=== PATIENT | female | born 1950 | race Caucasian/White ===

== ENCOUNTER 2020-06-07 06:40 | Outpatient (CLI) | payer MEDICARE ==
[2020-06-07 14:27] LABS: Bilirubin Neg (Negative); Blood, Urine 10 (Negative); Clarity Clear (Clear); Glucose, Urine (Dipstick) Normal (Negative); Ketone, Urine Negative (Negative); Leukocyte Negative (Negative); Nitrite Negative (Negative); Protein, Urine (Dipstick) Negative (Neg-Trace); Specific Gravity, Urine 1.015 (1.002-1.036); Urobilinogen Normal mg/dL (Less than 2)
[2020-06-07 14:30] LABS: Anion Gap 16 mmol/L (10-20); BUN (Urea Nitrogen) 11 mg/dL (9.8-20.1); Calc. Creatinine Clearance 0 mL/min (70-130); Calcium 9.8 mg/dL (7.8-10.44); Carbon Dioxide 25 mmol/L (23-31); Chloride 107 mmol/L (98-107); Glucose 119 mg/dL (80-115); Potassium 4.2 mmol/L (3.5-5.1); Sodium 144 mmol/L (136-145)
[2020-06-07 14:36] LABS: #Basophils 0.1 10x3/uL (0.0-0.2); #Eosinphils 0.2 10x3/uL (0.0-0.5); #Monocytes 0.5 10x3/uL (0.0-1.1); #Neutrophils 4.3 10x3/uL (1.5-8.4); %Basophils 1.1 % (0.0-2.0); %Eosinophils 2.8 % (0.0-6.0); %Lymphocytes 27.6 % (18.0-47.0); %Monocytes 7.4 % (0.0-10.0); %Neutrophils 60.8 % (40.0-75.0); Hemoglobin 14.9 g/dL (12.0-16.0); Mean Corpuscular HGB CONC 33.2 G/DL (32.0-36.0); Mean Corpuscular Hemoglobin 29.5 PG (27.0-33.0); Mean Corpuscular Volume 88.9 fl (80.0-100.0); Mean Platelet Volume 9.8 fl (7.4-10.4); Platelet Count 404 10x3/uL (130-400); RBC Distribution Width 13.1 % (11.5-14.5); Red Blood Cell (RBC) Count 5.05 10x6/uL (3.90-5.20)
[2020-06-07 14:43] LABS: Prothrombin Time 10.2 sec (9.5-12.1)
[2020-06-07 14:52] LABS: Bacteria/HPF None Seen HPF (None Seen); RBC/HPF 0-3 HPF (0-3); Squamous Epithelial 0-3 HPF (0-3); WBC/HPF None Seen HPF (0-3)
[2020-06-07 23:54] LABS: SARS-CoV-2 MS2 Positive; SARS-CoV-2 N Gene Negative; SARS-CoV-2 S Gene Negative; SARS-CoV-2 by NAA Not Detected (NotDetected); SARS-CoV-2 orf1ab Negative
== END 2020-06-07 06:41 | disposition home or self-care (01) ==
LOC: LABBT 06:40
PROVIDERS: ATTEND Orthopaedic Surgery
DX: Z01.818 Encounter for other preprocedural examination (principal); Z20.828 Contact with and (suspected) exposure to other viral communicable diseases; M17.11 Unilateral primary osteoarthritis, right knee
CPT/HCPCS: 80048; 81001; 85025; 85610; 87081; U0003; 87635; 93005; 93010

== ENCOUNTER 2020-06-12 09:22 | Observation (INO) | payer MEDICARE ==
[2020-06-09 09:54] VITALS: BMI 26.9
[2020-06-12] MEDS ORDERED: Vancomycin 1 GM/200 ML BAG ONE (09:29)
[2020-06-12] MEDS ORDERED: Sodium Chloride 0.9% 100 ML ONE (09:29)
[2020-06-12] MEDS ORDERED: Tranexamic Acid 1,000 MG/10 ML VIAL ONE ×2 (09:29→13:20)
[2020-06-12] MEDS ORDERED: Fentanyl 100 MCG/2 ML VIAL ONE ×5 (09:41→14:28)
[2020-06-12] MEDS ORDERED: Midazolam HCl 2 mg/2 ml Vial ONE (10:05)
[2020-06-12] MEDS ORDERED: Dexamethasone 20 MG/5 ML VIAL ONE (10:09)
[2020-06-12] MEDS ORDERED: Lidocaine 1% PF 5 ML VIAL ONE (10:09)
[2020-06-12] MEDS ORDERED: Ondansetron PF 4 MG/2 ML Vial ONE (10:09)
[2020-06-12] MEDS ORDERED: PROPOFOL 200 MG/20 ML VIAL ONE (10:09)
[2020-06-12] MEDS ORDERED: Ropivacaine 0.2% HCl/PF (40 MG/20 ML VIAL) ONE (10:10)
[2020-06-12] MEDS ORDERED: Bupivacaine HCl 0.5%/Epinephrine 1:200,000/PF 30 ml Vial ONE (10:10)
[2020-06-12] MEDS ORDERED: Bupivacaine PF 0.5% 30 ML VIAL ONE (10:50)
[2020-06-12] MEDS ORDERED: Bupivacaine 0.25% HCL 30 ML VIAL ONE (10:50)
[2020-06-12] MEDS ORDERED: HYDROcodone/Acetaminophen 10/325 mg Tablet PO PRN ×3 (10:53→11:30)
[2020-06-12] MEDS ORDERED: Fentanyl 100 MCG/2 ML VIAL SLOW IVP PRN (10:53)
[2020-06-12] MEDS ORDERED: diphenhydrAMINE 25 MG CAP PO PRN (10:53)
[2020-06-12] MEDS ORDERED: traMADol HCl 50 MG TAB PO PRN ×3 (10:53→11:30)
[2020-06-12] MEDS ORDERED: Zolpidem Tartrate 5 MG TAB PO PRN ×2 (10:53→11:30)
[2020-06-12] MEDS ORDERED: Acetaminophen 325 MG TAB PO PRN (10:53)
[2020-06-12] MEDS ORDERED: Promethazine HCl 25 MG/ML VIAL IM PRN ×3 (10:53→13:10)
[2020-06-12] MEDS ORDERED: Tranexamic Acid 1,000 MG in Sodium Chloride 0.9% 100 ML IVPB SCH (11:00)
[2020-06-12] MEDS ORDERED: Fentanyl 100 MCG/2 ML VIAL IV PRN (11:20)
[2020-06-12] MEDS ORDERED: Ondansetron PF 4 MG/2 ML Vial IVP PRN (11:30)
[2020-06-12] MEDS ORDERED: Ropivacaine HCl/PF 250 ML in Premix Bag 1 BAG NERVE BLCK SCH (11:30)
[2020-06-12] MEDS ORDERED: Ketorolac Tromethamine 30 MG/ML VIAL IVP SCH ×2 (12:00→14:00)
[2020-06-12] MEDS ORDERED: Azelastine 137 MCG/Spray 30 ML NS SCH (12:45)
[2020-06-12] MEDS ORDERED: Ondansetron HCl/PF 4 MG/2 ML Vial IVP PRN (13:10)
[2020-06-12] MEDS ORDERED: Morphine Sulfate 2 MG/ML SYRINGE SLOW IVP PRN (13:10)
[2020-06-12] MEDS ORDERED: PACU-Morphine 4MG/ML VIAL SLOW IVP PRN (13:10)
[2020-06-12] MEDS ORDERED: Promethazine HCl 25 MG/ML VIAL SLOW IVP PRN (13:10)
[2020-06-12] MEDS ORDERED: Morphine 4 MG/ML VIAL ONE (13:31)
[2020-06-12] MEDS ORDERED: Promethazine HCl 25 MG/ML VIAL ONE (14:24)
[2020-06-12] MEDS: Sodium Chloride 0.9% 1,000 ML IV SCH (18:58)
[2020-06-12] MEDS: Ketorolac Tromethamine 30 MG/ML VIAL IVP SCH (18:59)
[2020-06-12] MEDS: CEFAZOLIN 2 GM in Premix Bag 1 BAG IVPB SCH (19:00)
[2020-06-12] MEDS: Ferrous Gluconate 324 MG TAB PO SCH (20:10)
[2020-06-12] MEDS: Atorvastatin Calcium 40 MG TAB PO SCH (20:10)
[2020-06-12] MEDS: HYDROcodone/Acetaminophen 10/325 mg Tablet PO PRN (20:11)
[2020-06-12] MEDS: Senokot S 8.6-50 MG TAB PO SCH (20:12)
[2020-06-12] MEDS: Loratadine 10 MG TAB PO SCH (20:12)
[2020-06-12] MEDS: Aspirin 81 mg Enteric Coated Tablet PO SCH (20:14)
[2020-06-12] MEDS: ALPRAZolam 0.25 MG TAB PO PRN (20:17)
[2020-06-12] MEDS ORDERED: Vancomycin 1 GM in Premix Bag 1 BAG IVPB SCH (22:00)
--- NOTE | 2020-06-12 22:28 | OP ---
DATE OF PROCEDURE: 06/12/2020 [employer] OPERATOR: Berlin Gentile PA-C. The pharmacy technician assistant surgeon was present throughout the procedure to include the approach, placement of all total knee replacement implants as well as full closure of the right knee wound. PREOPERATIVE DIAGNOSIS: Right knee osteoarthrosis. POSTOPERATIVE DIAGNOSIS: Right knee osteoarthrosis. PROCEDURES PERFORMED: Right total knee replacement using [employer] pinless navigation system. ANESTHESIA: General anesthetic. BLOOD LOSS: Minimal. COMPLICATIONS: None. TOURNIQUET TIME: DISPOSITION: She did go to recovery room in stable condition. IMPLANTS: To the right knee include [place] total knee system. The femur is a size 5 right cruciate-retaining femur. We used a size 4 primary tibial base plate. We used a 4 x 9 mm CS X3 tibial bearing and a 27 x 8 X3 symmetric patella. COMPLICATIONS: None. INDICATIONS: This is a 70-year-old female, who has had severe right knee pain for years and at this time, she presents for her right knee to be replaced. PROCEDURE IN DETAIL: After all appropriate consent forms were explained and signed, the patient was taken back to the operating room and at this time was given general anesthetic. Once the level of anesthesia was appropriate, a well-padded tourniquet was placed on the right leg, and the leg was then prepped and draped in standard surgical fashion. The limb was exsanguinated and tourniquet taken up to 300 mmHg. Midline incision was made with a 10 blade down through the skin and subcutaneous tissue. Bovie electrocautery was used to coagulate any brisk venous bleeding. A new blade was used to make a medial parapatellar arthrotomy. Small subperiosteal release was performed medially and excess fat pad was removed. The knee was flexed up to gain access to the femur. The femur was navigated and distal femoral resection was made. Epicondylar access was used to align our sizing jig and this was pinned in place. We sized our femur to be a 5 cruciate-retaining femur. 4:1 cutting block was applied and pinned. Anterior and posterior chamfer cuts were then made. We navigated out our proximal tibia and made our proximal tibial resection. Spreaders were used to remove any posterior osteophytes off the back of the femur as well as remaining meniscal tissue. A long alignment tracy was then used to achieve correct rotation of our tibial baseplate and a size 4 was chosen. This was pinned in place. We trialed the polyethylene and a 4 x 9 mm CS X3 polyethylene gave us full extension and good stability throughout range of motion. Two towel clips and a saw were used to cut our patella. Three lug nuts were drilled and 27 x 8 X3 symmetric patella was trialed which sat nicely in the trochlear groove. We then drilled our femur and punched our tibia. All components were removed. The knee was thoroughly irrigated and dried. Cement was mixed into the cement gun on the back table. Components were then placed. The knee was held out in full extension until the cement had dried. All excess bone cement was removed. Multiple #2 Vicryl stitches as well as a Quill were used to close our extensor mechanism. 0 Quill followed by a running Monoderm was then used to close the skin. Surgicel glue was then used on the skin. Once this had dried, soft tissue dressing was applied to the limb, tourniquet was let down, and the toes pinked up nicely. The patient was then awakened and taken to the recovery room in stable condition. All counts were correct at the end of the case. The patient did receive preoperative IV antibiotics. The patient was injected with Marcaine for postoperative pain relief. Job ID: [id number]
[2020-06-13] MEDS: Sodium Chloride 0.9% 1,000 ML IV SCH ×3 (00:20→17:28)
[2020-06-13] MEDS: HYDROcodone/Acetaminophen 10/325 mg Tablet PO PRN ×4 (00:58→21:18)
[2020-06-13] MEDS: Ketorolac Tromethamine 30 MG/ML VIAL IVP SCH ×3 (01:33→17:37)
[2020-06-13] MEDS: CEFAZOLIN 2 GM in Premix Bag 1 BAG IVPB SCH (01:34)
[2020-06-13 05:22] LABS: Hemoglobin 12.5 g/dL (12.0-16.0); Mean Corpuscular HGB CONC 34.1 g/dL (32.0-36.0); Mean Corpuscular Hemoglobin 30.3 pg (27.0-31.0); Mean Platelet Volume 7.5 fL (7.4-10.4); Platelet Count 346 thou/uL (130-400); RBC Distribution Width 12.2 % (11.5-14.5); Red Blood Cell (RBC) Count 4.11 mill/uL (4.20-5.40); White Blood Cell (WBC) Count 14.1 thou/uL (4.8-10.8)
[2020-06-13] MEDS: Ondansetron PF 4 MG/2 ML Vial IVP PRN ×2 (05:23→17:37)
[2020-06-13] MEDS ORDERED: Non-Formulary Item 1 EACH (Multivitamin [Multivitamin] 1 EACH Tablet) PO SCH (09:00)
--- NOTE | 2020-06-13 09:27 | PRG ---
DATE OF SERVICE: 06/13/2020 SUBJECTIVE: Shana is a 70-year-old female, postop day 1 from a right total knee arthroplasty. She is doing relatively well. Pain is controlled. OBJECTIVE: VITAL SIGNS: Temperature 98.1, pulse 94, respiratory rate 18, blood pressure is 109/66. NEUROLOGIC: She is alert and oriented to person, place, time, and situation. Responsive and appropriate with examiner. Incision is clean. No strike through. No erythema. She is neurovascularly intact in the right lower extremity. LABORATORY DATA: Hemoglobin and hematocrit 12.5 and 36.5. IMPRESSION: A 70-year-old female postop day 1 right total knee arthroplasty, doing relatively well. PLAN: Initiate physical therapy. Expected discharge tomorrow. Continue to observe for hemorrhage and pain control. Job ID: [id number]
[2020-06-13] MEDS: Multivitamin W/ Minerals 1 TAB PO SCH (10:08)
[2020-06-13] MEDS: Ascorbic Acid 500 mg Chewable Tablet PO SCH (10:09)
[2020-06-13] MEDS: Senokot S 8.6-50 MG TAB PO SCH ×2 (10:09→21:18)
[2020-06-13] MEDS: Calcium Carbonate 600 MG + Vit D TAB PO SCH (10:09)
[2020-06-13] MEDS: Ferrous Gluconate 324 MG TAB PO SCH (10:09)
[2020-06-13] MEDS: Aspirin 81 mg Enteric Coated Tablet PO SCH (10:16)
[2020-06-13] MEDS: ALPRAZolam 0.25 MG TAB PO PRN (21:17)
[2020-06-13] MEDS: Atorvastatin Calcium 40 MG TAB PO SCH (21:17)
[2020-06-13] MEDS: Loratadine 10 MG TAB PO SCH (21:18)
[2020-06-14] MEDS: Ferrous Gluconate 324 MG TAB PO SCH ×2 (02:03→09:00)
[2020-06-14] MEDS: Aspirin 81 mg Enteric Coated Tablet PO SCH ×2 (02:03→09:00)
[2020-06-14] MEDS: Sodium Chloride 0.9% 1,000 ML IV SCH ×2 (02:05→13:31)
[2020-06-14] MEDS: Ketorolac Tromethamine 30 MG/ML VIAL IVP SCH ×3 (03:24→11:25)
[2020-06-14] MEDS: Ondansetron PF 4 MG/2 ML Vial IVP PRN ×2 (04:00→11:34)
[2020-06-14] MEDS: HYDROcodone/Acetaminophen 10/325 mg Tablet PO PRN (04:50)
[2020-06-14 06:35] LABS: Hemoglobin 11.3 g/dL (12.0-16.0); Mean Corpuscular HGB CONC 34.5 g/dL (32.0-36.0); Mean Corpuscular Hemoglobin 30.9 pg (27.0-31.0); Mean Corpuscular Volume 89.7 fL (78.0-98.0); Mean Platelet Volume 7.9 fL (7.4-10.4); Platelet Count 308 thou/uL (130-400); RBC Distribution Width 12.2 % (11.5-14.5); Red Blood Cell (RBC) Count 3.64 mill/uL (4.20-5.40); White Blood Cell (WBC) Count 9.9 thou/uL (4.8-10.8)
[2020-06-14] MEDS: Calcium Carbonate 600 MG + Vit D TAB PO SCH (09:00)
[2020-06-14] MEDS: Ascorbic Acid 500 mg Chewable Tablet PO SCH (09:00)
[2020-06-14] MEDS: Multivitamin W/ Minerals 1 TAB PO SCH (09:00)
[2020-06-14] MEDS: Senokot S 8.6-50 MG TAB PO SCH (09:01)
[2020-06-14] MEDS ORDERED: Metoclopramide HCl 10 MG TAB PO SCH (12:00)
[2020-06-14 16:05] VITALS: BP 136/73; TEMP 98.2
[2020-06-15] MEDS ORDERED: CeleCOXIB 100 MG CAP PO SCH (09:00)
== END 2020-06-14 16:25 | disposition home or self-care (01) ==
LOC: SDC 09:22 → SURG B 10:53 → SDC 06-13 08:22 → SURG B 06-13 08:22
PROVIDERS: ADMIT Orthopaedic Surgery; ATTEND Orthopaedic Surgery
PROC: 0SRC0J9 Replacement of Right Knee Joint with Synthetic Substitute, Cemented, Open Approach (ICD-10-PCS; principal; 2020-06-12)
PROC: 8E0YXBZ Computer Assisted Procedure of Lower Extremity (ICD-10-PCS; 2020-06-12)
PROC: 3E0T3BZ Introduction of Anesthetic Agent into Peripheral Nerves and Plexi, Percutaneous Approach (ICD-10-PCS; 2020-06-12)
PROC: 3E0T3BZ Introduction of Anesthetic Agent into Peripheral Nerves and Plexi, Percutaneous Approach (ICD-10-PCS; 2020-06-12)
DX: M17.11 Unilateral primary osteoarthritis, right knee (principal); G89.18 Other acute postprocedural pain; I10 Essential (primary) hypertension; M81.0 Age-related osteoporosis without current pathological fracture; Z79.810 Long term (current) use of selective estrogen receptor modulators (SERMs); Z79.899 Other long term (current) drug therapy
CPT/HCPCS: 20985; 27447; 64445; 64448; 85027 ×2; 96374; 96375; 96376 ×2; 97110 ×2; 97116 ×3; 97139 ×5; 97530; C1713; C1776; G0378 ×2; 36415; J0690; J1100; J1885; J2250; J2270; J2405; J2550; J2704; J2795; J3010; J3370; J3490; S0020